=== PATIENT | female | born 2000 | race Caucasian/White ===

== ENCOUNTER 2019-02-15 02:40 | Emergency (ER) | payer BC, OTHER ==
[~2019-02-15] VITALS: Ht 162.6 cm; Wt 59.1 kg
[2019-02-15 02:45] VITALS: BP 149/69
[2019-02-15] MEDS ORDERED: TETanus/Pertussis (Acell)/Diphther VAC/PF (Tdap-Adult) 0.5ml syringe IM ONE (03:05)
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
== END 2019-02-15 04:15 ==
LOC: ER 02:42
DX: S61.411A Laceration without foreign body of right hand, initial encounter (principal); F12.10 Cannabis abuse, uncomplicated; V49.49XA Driver injured in collision with other motor vehicles in traffic accident, initial encounter; Y93.89 Activity, other specified; Y92.410 Unspecified street and highway as the place of occurrence of the external cause; Y99.8 Other external cause status
CPT/HCPCS: 99283